=== PATIENT | female | born 1980 | race Caucasian/White ===

== ENCOUNTER 2018-03-23 16:46 | Emergency (ER) | payer OTHER ==
--- NOTE | 2018-03-23 16:51 | ED Physician Documentation ---
General Adult - HISTORIAN Historian: patient (right arm pain after skating ) - HPI Stated Complaint: right arm pain after fall skating Chief Complaint: Fall Onset: hours (1) Timing: still present Severity: mild Further Comments: yes (She notes helping her son skate and she did fall on the right arm. She states she did not try any OTC meds for pain. She has mild swelling. She is able to move the arm fully but has increased pain with extension. no other injury noted. She denies hitting her head or LOC) - ROS CONST: no problems MS/SKIN/LYMPH: joint pain. denies: neck pain - PAST HX Past History: none Immunizations: UTD Allergies/Adverse Reactions: Allergies Allergy/AdvReac Type Severity Reaction Status Date / Time No Known Drug Allergies Allergy Unverified 04/19/14 13:40 Home Medications: Ambulatory Orders Medication Instructions Recorded Sertraline HCl [Zoloft] 50 mg PO DAILY u2 04/19/14 - SOCIAL HX Smoking History: non-smoker Alcohol Use: none Drug Use: none - FAMILY HX Family History: No - REVIEWED ASSESSMENTS Nursing Assessment Reviewed: Yes Vitals Reviewed: Yes Progress - Progress Progress: 1800: results and plan discussed they are agreeable DG ED Results Lab/Radiology - Radiology Radiology Impressions: 2 views of right humerus Clinical history: Right arm pain Findings: No acute fracture dislocation is identified. Alignment is normal. Impression: Negative Electronically signed on Mar 23, 2018 5:57:52 PM COMPLIANCE PARALEGAL by: Matt Dixon 2 views right forearm Clinical history: Fall Findings: No acute fracture dislocation is identified. The alignment is normal. Impression: Negative Electronically signed on Mar 23, 2018 5:58:44 PM COMPLIANCE PARALEGAL by: Matt Dixon 2 views right elbow Clinical history: Right elbow pain Findings: 2 views demonstrate no acute fracture dislocation. Alignment is normal. The joint spaces appear maintained. There is no joint effusion identified. Impression: Negative Electronically signed on Mar 23, 2018 5:59:51 PM COMPLIANCE PARALEGAL by: Matt Dixon General Adult Physical Exam - PHYSICAL EXAM GENERAL APPEARANCE: no distress EENT: eye inspection normal, ENT inspection normal, pharynx normal, no signs of dehydration, YENI NECK: normal inspection RESPIRATORY: no resp distress, chest non-tender, breath sounds normal CVS: reg rate & rhythm, heart sounds normal ABDOMEN: soft, normal bowel sounds, no distension BACK: normal inspection SKIN: warm/dry, normal color EXTREMITIES: non-tender, normal range of motion, other (right elbow with FROM - mild forearm swelling. Pulses + cap refill + sensation + ) NEURO: oriented X3 Discharge Clincal Impression: Fall Qualifiers: Encounter type: initial encounter Qualified Code(s): W19.XXXA - Unspecified fall, initial encounter Referrals: Primary Doctor,No [Primary Care Provider] - 2 Days Comments: 1. Ibuprofen or Tylenol as directed for pain 2. Ice for comfort 3. Kirt wrap 4. Follow up with PCP in 2-4 days if no improvement 5. Return to ER for any concerns Condition: Stable Disposition: 01 HOME, SELF-CARE Decision to Admit: NO Date of Decison to Admit: 03/23/18 Decision Time: 18:14
[2018-03-23] MEDS ORDERED: KETOROLAC TROMETHAMINE 60 MG/2 ML VIAL IM ONE (17:57)
--- NOTE | 2018-03-23 18:35 | Diagnostic Imaging Report ---
MILLY LAL [facility] [address] [facility] [address] [place], [place]. [address] Report Submission Date: Mar 23, 2018 5:58:44 PM WASTEWATER TREATMENT SUPERVISOR Patient Study Name: DILMA MARTIN Date: Mar 23, 2018 5:33:30 PM WASTEWATER TREATMENT SUPERVISOR Modality Type: DX Gender: F Description: UPPER EXTREMITY : 78 Institution: [facility] Physician: MILLY LAL 2 views right forearm Clinical history: Fall Findings: No acute fracture dislocation is identified. The alignment is normal. Impression: Negative Electronically signed on Mar 23, 2018 5:58:44 PM WASTEWATER TREATMENT SUPERVISOR by: Matt NARANJO
--- NOTE | 2018-03-23 18:36 | Diagnostic Imaging Report ---
MILLY LAL [facility] [address] [facility] [address] [place], [place]. [address] Report Submission Date: Mar 23, 2018 5:57:52 PM WEIGH TANK OPERATOR Patient Study Name: DILMA MARTIN Date: Mar 23, 2018 5:27:37 PM WEIGH TANK OPERATOR Modality Type: DX Gender: F Description: UPPER EXTREMITY : 78 Institution: [facility] Physician: MILLY LAL 2 views of right humerus Clinical history: Right arm pain Findings: No acute fracture dislocation is identified. Alignment is normal. Impression: Negative Electronically signed on Mar 23, 2018 5:57:52 PM WEIGH TANK OPERATOR by: Matt NARANJO
--- NOTE | 2018-03-23 18:36 | Diagnostic Imaging Report ---
MILLY LAL [facility] [address] [facility] [address] [address] Report Submission Date: Mar 23, 2018 5:59:51 PM POLICE JUSTICE Patient Study Name: DILMA MARTIN Date: Mar 23, 2018 5:36:02 PM POLICE JUSTICE Modality Type: DX Gender: F Description: UPPER EXTREMITY : 78 Institution: [facility] Physician: MILLY LAL 2 views right elbow Clinical history: Right elbow pain Findings: 2 views demonstrate no acute fracture dislocation. Alignment is normal. The joint spaces appear maintained. There is no joint effusion identified. Impression: Negative Electronically signed on Mar 23, 2018 5:59:51 PM POLICE JUSTICE by: Matt NARANJO
[2018-03-23 23:58] VITALS: BP 138/66
== END 2018-03-23 18:29 | disposition home or self-care (01) ==
LOC: ED 16:46
DX: M79.601 Pain in right arm (principal); V00.211A Fall from ice-skates, initial encounter; Y93.21 Activity, ice skating; Y92.9 Unspecified place or not applicable
CPT/HCPCS: 29260; 73060; 73080; 73090; 96372; 99282; 99285; J1885